=== PATIENT | female | born 1970 | race Caucasian/White ===

== ENCOUNTER 2017-04-13 16:00 | Emergency (ER) | payer OTHER ==
[~2017-04-13] VITALS: Ht 160 cm; Wt 49.9 kg
[~2017-04-13 16:00] MED LIST: ACETAMINOPHEN PO; ALBUTEROL MDI; ALLERGY RELIEF10 M1 PO; ALPRAZOLAM PO; ALPRAZOLAM0.25 MG PO; ALPRAZOLAM1 MG PO; AMBIEN PO; AMBIEN10 MG PO; BENTYL10 MG PO; BENTYL20 MG PO; BUSPAR PO; BUSPAR30 MG PO; CENTRUM PO; CIPRO PO; CYMBALTA30 MG PO; DICYCLOMINE HCL20 MG PO; EFFEXOR XR PO; EFFEXOR75 M1 PO; EFFEXOR75 M3 PO; FAMOTIDINE PO; FERRO-TIME325 MG PO; FERROUS SULFATE PO; FIORINAL CAPSUL1 CAP PO; FLAGYL PO; GABAPENTIN400 M2 PO; HYDROCODON-ACE1 EAC4 PO; KEFLEX PO; LAMICTAL PO; LAMICTAL100 MG PO; LAMICTAL25 MG PO; LEVAQUIN PO; LEVAQUIN750 MG PO; LEVOFLOXACIN500 MG PO; LOMOTIL TABLET1 TAB PO; LORTAB 10-5001 EACH PO; LORTAB 7.5-5001 TAB PO; METRONIDAZOLE PO; MICRO-K PO; MULTIPLE VITAMI1 T12 PO; NICOTINE T1 PATCH .2 TOP; NIFEREX-150150 MG PO; NORCO 10-325 TA1 TAB PO; ORUDIS75 M1 PO; PERCOCET 5-3251 TAB PO; PHENERGAN25 MG PO; PREDNISONE PO; PREDNISONE10 MG PO; PRILOSEC PO; TAGAMET200 MG PO; VICODIN 5/500 T1 TAB PO; VYVANCE; VYVANCE PO; XANAX1 MG PO; ZOFRAN PO
== END 2017-04-13 16:46 | disposition home or self-care (01) ==
LOC: CED 16:00 → CFTX 16:00
DX: H66.91 Otitis media, unspecified, right ear (principal); F17.210 Nicotine dependence, cigarettes, uncomplicated
CPT/HCPCS: 99283